=== PATIENT | male | born 1985 | race Caucasian/White ===

== ENCOUNTER 2021-07-31 13:06 | Emergency (ER) | payer OTHER ==
[~2021-07-31] VITALS: Ht 185.4 cm; Wt 102.3 kg
[2021-07-31] MEDS ORDERED: KETOROLAC TROMETHAMINE 60 MG/2 ML VIAL IM ONE (14:45)
[2021-07-31] MEDS ORDERED: CYCL-448 PO (15:30)
[2021-07-31 15:44] VITALS: BP 119/67
== END 2021-07-31 15:55 | disposition home or self-care (01) ==
LOC: EMS 13:06
DX: M54.6 Pain in thoracic spine (principal)
CPT/HCPCS: 96372; 99283; J1885

== ENCOUNTER 2021-08-04 14:51 | Emergency (ER) | payer OTHER ==
[~2021-08-04] VITALS: Ht 185.4 cm; Wt 102.0 kg
[~2021-08-04 14:51] MED LIST: CYCL-448 PO
[2021-08-04] MEDS ORDERED: KETOROLAC TROMETHAMINE 60 MG/2 ML VIAL IM ONE (17:15)
[2021-08-04] MEDS ORDERED: METHOCARBAMOL 500 MG TABLET PO ONE (17:15)
[2021-08-04] MEDS ORDERED: GABAPENTIN 300 MG CAPSULE PO ONE (17:15)
[2021-08-04] MEDS ORDERED: GABA-1181 PO (19:23)
[2021-08-04] MEDS ORDERED: METH-659 PO (19:23)
[2021-08-04 19:33] VITALS: BP 136/72
== END 2021-08-04 19:44 | disposition home or self-care (01) ==
LOC: EMS 14:51
DX: M54.6 Pain in thoracic spine (principal); Z79.899 Other long term (current) drug therapy
CPT/HCPCS: 96372; 99283; J1885

== ENCOUNTER 2022-01-25 19:55 | Emergency (ER) | payer OTHER ==
[~2022-01-25] VITALS: Ht 185.4 cm; Wt 95.5 kg
[~2022-01-25 19:55] MED LIST changes: +GABA-1181 PO; +METH-659 PO
[2022-01-25] MEDS ORDERED: BACLOFEN 10 MG TABLET PO ONE (21:15)
[2022-01-25] MEDS ORDERED: LIDOCAINE 5% TRANSDERMAL PATCH TD ONE (21:15)
[2022-01-25] MEDS ORDERED: KETOROLAC TROMETHAMINE 30 MG/ML VIAL IM ONE (21:15)
[2022-01-25] MEDS ORDERED: BACL10TA PO (22:47)
[2022-01-25 23:00] VITALS: BP 129/74
== END 2022-01-25 23:46 | disposition home or self-care (01) ==
LOC: EMS 19:55
DX: M54.6 Pain in thoracic spine (principal)
CPT/HCPCS: 99284; 72128; 96372; J1885